=== PATIENT | female | born 1995 | race Caucasian/White ===

== ENCOUNTER 2017-08-06 13:28 | Emergency (ER) | payer BC ==
[~2017-08-06] VITALS: Ht 147.3 cm; Wt 122.0 kg
[~2017-08-06 13:28] MED LIST: ANTIVERT25 MG PO; CARAFATE1 GM PO; CITALOPRAM HBR40 MG; GLUCOPHAGE1000 MG; HYDROCODON-ACE1 EAC7 PO; MACROBID 100 M100 M2 PO; METFORMIN HCL500 MG PO; MINOCYCLINE HC100 M2; ONDANSETRON HCL4 M2 PO; PROZAC10 MG PO; ZANTAC 150MG T150 MG PO
[2017-08-06] MEDS ORDERED: ZOLOFT25 MG PO (13:34)
[2017-08-06 14:07] LABS: ABSOLUTE EOSINOPHILS 0.2 thou/uL (0.0-0.7); ABSOLUTE LYMPHOCYTES 2.3 thou/uL (0.8-5.3); ABSOLUTE MONOCYTES 0.6 thou/uL (0.0-1.2); BASOPHILS 0.7 %; EOSINOPHILS 2.5 %; HEMATOCRIT 37.8 % (37.0-47.0); HEMOGLOBIN 12.8 gm/dL (12.0-15.0); LYMPHOCYTES 37.6 %; MCH 27.7 pg (26.0-34.0); MCHC 33.9 g/dL (28.0-37.0); MCV 81.9 fL (80.0-100.0); MONOCYTES 9.6 %; MPV 7.6 fl. (7.2-11.1); NUCLEATED RBCS 0 /100WBC; PLATELET COUNT* 321 thou/uL (150-400); POLYS 49.6 %; RBC 4.62 mil/uL (4.20-5.00); RDW-CV 13.7 % (10.5-14.5); WBC 6.1 thou/uL (4.0-11.0)
[2017-08-06 14:13] LABS: ANION GAP 4 mmol/L (7-16); BUN 11 mg/dL (7-18); CHLORIDE 104 mmol/L (98-107); CO2 31 mmol/L (21-32); CREATININE 0.7 mg/dL (0.6-1.3); GLUCOSE 101 mg/dL (70-99); POTASSIUM 3.5 mmol/L (3.5-5.1); SODIUM 139 mmol/L (136-145)
[2017-08-06 14:20] LABS: ALBUMIN 3.4 g/dL (3.4-5.0); ALKALINE PHOSPHATASE 121 U/L (46-116); LIPASE 59 U/L (73-393); MAGNESIUM 1.7 mg/dL (1.8-2.4); SGOT 12 U/L (15-37); SGPT 21 U/L (30-65); TOTAL BILIRUBIN 0.4 mg/dL (<0.1-1.0); TOTAL PROTEIN 6.8 g/dL (6.4-8.2); TROPONIN-I LEVEL <0.06 ng/mL (<0.06)
[2017-08-06 14:34] VITALS: BP 139/71
[2017-08-06] MEDS ORDERED: TRAMADOL 50 MG50 MG PO (14:37)
--- NOTE | 2017-08-06 16:43 | EKG ---
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
== END 2017-08-06 14:37 | disposition home or self-care (01) ==
LOC: M.ERS 13:28
PROVIDERS: Emergency Medicine Emergency Medical Services
DX: R07.89 Other chest pain (principal); F41.9 Anxiety disorder, unspecified; Z88.1 Allergy status to other antibiotic agents; Z88.8 Allergy status to other drugs, medicaments and biological substances; Z88.6 Allergy status to analgesic agent

== ENCOUNTER 2018-03-30 19:33 | Emergency (ER) | payer BC ==
[~2018-03-30] VITALS: Ht 149.9 cm; Wt 96.2 kg
[~2018-03-30 19:33] MED LIST changes: +TRAMADOL 50 MG50 MG PO; +ZOLOFT25 MG PO
[2018-03-30 20:28] VITALS: BP 132/68
== END 2018-03-30 20:29 | disposition home or self-care (01) ==
LOC: M.ERS 19:33
DX: S00.33XA Contusion of nose, initial encounter (principal); F41.9 Anxiety disorder, unspecified; Z98.890 Other specified postprocedural states; Z88.1 Allergy status to other antibiotic agents; Z88.6 Allergy status to analgesic agent; Z88.8 Allergy status to other drugs, medicaments and biological substances; W51.XXXA Accidental striking against or bumped into by another person, initial encounter; Y93.89 Activity, other specified; Y92.89 Other specified places as the place of occurrence of the external cause; Y99.8 Other external cause status

== ENCOUNTER 2019-02-14 18:20 | Emergency (ER) | payer BC ==
[~2019-02-14] VITALS: Ht 142.2 cm; Wt 89.8 kg
[2019-02-14] MEDS ORDERED: WELLBUTRIN SR150 M1 PO (18:30)
[2019-02-14] MEDS ORDERED: SUPER THERAVIT1 EACH PO (18:30)
[2019-02-14 18:36] LABS: URINE BILIRUBIN NEGATIVE (Negative); URINE BLOOD NEGATIVE (Negative); URINE CLARITY CLEAR; URINE COLOR YELLOW; URINE GLUCOSE-RANDOM NEGATIVE (Negative); URINE KETONES NEGATIVE (Negative); URINE LEUKOCYTES-REFLEX NEGATIVE (Negative); URINE NITRITE-REFLEX NEGATIVE (Negative); URINE PROTEIN NEGATIVE (Negative); URINE UROBILINOGEN 0.2 E.U./dl (0.2-1.0)
[2019-02-14 18:48] LABS: ABSOLUTE BASOPHILS 0.1 thou/uL (0.0-0.2); ABSOLUTE EOSINOPHILS 0.2 thou/uL (0.0-0.7); ABSOLUTE MONOCYTES 0.7 thou/uL (0.0-1.2); BASOPHILS 0.8 %; EOSINOPHILS 2.1 %; HEMATOCRIT 38.4 % (37.0-47.0); HEMOGLOBIN 13.2 gm/dL (12.0-15.0); LYMPHOCYTES 25.1 %; MCH 28.9 pg (26.0-34.0); MCHC 34.3 g/dL (28.0-37.0); MCV 84.4 fL (80.0-100.0); MONOCYTES 9.2 %; MPV 7.5 fl. (7.2-11.1); NUCLEATED RBCS 0 /100WBC; PLATELET COUNT* 275 thou/uL (150-400); POLYS 62.8 %; RBC 4.55 mil/uL (4.20-5.00); RDW-CV 13.4 % (10.5-14.5)
[2019-02-14 18:54] LABS: CALCIUM 8.6 mg/dL (8.5-10.1); CREATININE 0.9 mg/dL (0.6-1.3); POTASSIUM 3.7 mmol/L (3.5-5.1)
[2019-02-14 18:59] LABS: ALBUMIN 3.6 g/dL (3.4-5.0); TOTAL BILIRUBIN 0.2 mg/dL (<0.1-1.0); TOTAL PROTEIN 7.1 g/dL (6.4-8.2)
[2019-02-14 19:42] LABS: INFLUENZA A ANTIGEN Negative (Negative); INFLUENZA B ANTIGEN Negative (Negative)
[2019-02-14 20:18] VITALS: BP 109/68
--- NOTE | 2019-02-16 10:49 | EKG ---
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
== END 2019-02-14 20:19 | disposition home or self-care (01) ==
LOC: M.ERS 18:20
PROVIDERS: Nurse Practitioner Family
DX: F41.9 Anxiety disorder, unspecified (principal); R51 Headache; R42 Dizziness and giddiness; N80.9 Endometriosis, unspecified; Z88.1 Allergy status to other antibiotic agents; Z88.6 Allergy status to analgesic agent; Z88.8 Allergy status to other drugs, medicaments and biological substances; Z98.890 Other specified postprocedural states

== ENCOUNTER 2020-01-14 19:27 | Emergency (ER) | payer BC ==
[~2020-01-14] VITALS: Ht 144.8 cm; Wt 102.1 kg
[~2020-01-14 19:27] MED LIST changes: +SUPER THERAVIT1 EACH PO; +WELLBUTRIN SR150 M1 PO
[2020-01-14 20:04] VITALS: BP 148/52
== END 2020-01-14 20:05 | disposition home or self-care (01) ==
LOC: M.ERS 19:27
DX: S41.112A Laceration without foreign body of left upper arm, initial encounter (principal); Z79.899 Other long term (current) drug therapy; Z88.1 Allergy status to other antibiotic agents; Z88.8 Allergy status to other drugs, medicaments and biological substances; W45.8XXA Other foreign body or object entering through skin, initial encounter; Y93.89 Activity, other specified; Y92.89 Other specified places as the place of occurrence of the external cause; Y99.8 Other external cause status